=== PATIENT | male | born 1985 | race Caucasian/White ===

== ENCOUNTER 2017-09-28 19:59 | Emergency (ER) | payer OTHER ==
[~2017-09-28] VITALS: Ht 167.6 cm; Wt 62.2 kg
[~2017-09-28 19:59] MED LIST: ZOFRAN4 MG PO
[2017-09-29 00:18] VITALS: BP 98/74
== END 2017-09-29 00:19 | disposition home or self-care (01) ==
LOC: EME 19:59
DX: K59.00 Constipation, unspecified (principal)
CPT/HCPCS: 74019; 99281; 99284